=== PATIENT | female | born 1940 | race Caucasian/White ===

== ENCOUNTER → 2017-01-07 | Outpatient (CLI) | payer MEDICARE, MEDICAID ==
--- NOTE | 2017-01-15 08:18 | WOMENS IMAGING REPORT ---
EXAM DESCRIPTION: BILAT SCREENING MAMMO W/CAD COMPLETED DATE/TIME: 01/07/2017 1:57 pm REASON FOR STUDY: ROUTINE SCREENING; Z12.31 Z12.31 ENCNTR SCREEN MAMMOGRAM FOR MALIGNANT NEOPLASM O F ELENO COMPARISON: None. TECHNIQUE: Standard craniocaudal and mediolateral oblique views of each breast recorded using digita l acquisition. LIMITATIONS: None. FINDINGS: Findings present which are benign by mammographic criteria. No suspicious masses, calcifi cations or architectural distortion. Pertinent benign findings: Benign breast parenchymal and vascular calcifications bilaterally. Fibroa denoma far upper outer quadrant right breast. Read with the assistance of CAD. .[facility] - R2 Cenova Version 1.3 .[facility] - R2 Cenova Version 1.3 .[facility] - R2 Cenova Version 2.4 .[facility] - R2 Cenova Version 2.4 .[facility] - R2 Spinning Room Worker Version 9.2 Benign mammographic findings may include one or more of the following: Smooth masses, popcorn/rim/co arse calcifications, asymmetries, post-procedure changes, and lesions with long-standing stability. IMPRESSION: BENIGN MAMMOGRAPHIC FINDINGS. BIRADS 2 BREAST DENSITY: c. The breasts are heterogeneously dense, which may obscure small masses. BIRAD: 2 BENIGN FINDING(S) RECOMMENDATION: ROUTINE SCREENING COMMENT: The patient has been notified of the results by letter per SA requirements. Additional no tification policies are in place for contacting patient with suspicious or incomplete findings. Quality ID #[id number]: The [employer] recommends an annual screening mammogram for women aged 40 years or over. This facility utilizes a reminder system to ensure that all patients receive reminder letters, and/or direct phone calls for appointments. This includes reminders for routine scr eening mammograms, diagnostic mammograms, or other Breast Imaging Interventions when appropriate. Th is patient will be placed in the appropriate reminder system. The [employer] (ACR) has developed recommendations for screening MRI of the breast s in certain patient populations, to be used in conjunction with mammography. Breast MRI surveillanc e may be appropriate for women with more than 20% lifetime risk of developing breast cancer as deter mined by genetic testing, significant family history of the disease, or history of mantle radiation f or Hodgkins Disease. ACR Practice Guidelines 2008. TECHNICAL DOCUMENTATION: FINDING NUMBER: (1) ASSESSMENT: (1) JOB ID: [id number] [employer]- All Rights Reserved
== END ==
LOC: WI 11:33
PROVIDERS: ATTEND Family Medicine
DX: Z12.31 Encounter for screening mammogram for malignant neoplasm of breast (principal)
CPT/HCPCS: 77067; G0202

== ENCOUNTER 2017-07-16 09:22 | Inpatient (IN) | payer MEDICARE, MEDICAID ==
[2017-07-16] MEDS ORDERED: NORMAL SALINE 1000 ML 1,000 ML IV ONE ×2 (09:36→11:27)
--- NOTE | 2017-07-16 09:36 | ER Document Report ---
ED General - General Stated Complaint: ALTERED MENTAL STATUS Time Seen by Provider: 07/16/17 09:25 Notes: Patient is a 77-year-old female who presents emergency department via EMS with a chief complaint of fall, altered mental status. EMS states that the patient' s daughter came over to her house this morning and found her on the ground covered in fecal matter but responsive. She does have a cut on the right frontal part of her scalp without any active bleeding. EMS states that per daughter patient has been more confused over the past week. Otherwise denies any vomiting, cough, urinary frequency. Patient does live by herself with daughter and son-in-law check on her daily. Denies any fevers, vomiting, diarrhea or constipation. 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 PCP is Dr. Darnell TRAVEL OUTSIDE OF THE [place] IN LAST 30 DAYS: No - Related Data Allergies/Adverse Reactions: No Known Allergies Allergy (Unverified 07/16/17 11:04) Past Medical History - Social History Smoking Status: Never Smoker Family History: Reviewed & Not Pertinent Review of Systems - Review of Systems -: Yes ROS unobtainable due to patient's medical condition Physical Exam - Vital signs Vitals: Resp 20 07/16/17 09:45 - Notes Notes: PHYSICAL EXAMINATION: GENERAL: Well-appearing, well-nourished and in no acute distress. GCS 13, confused, responds to voice, follows commands HEAD: 1 cm laceration on the right frontal scalp without active bleeding., normocephalic. EYES: Pupils equal round and nonreactive to light, extraocular movements intact , sclera anicteric, conjunctiva are normal. ENT: Nares patent, oropharynx clear without exudates. Moist mucous membranes. No hemanotympanum . No blood in nares. No dental fracture NECK: Normal range of motion, supple without lymphadenopathy. Trachea midline LUNGS: Breath sounds clear to auscultation bilaterally and equal. No wheezes rales or rhonchi. HEART: Regular rate and rhythm without murmurs. Pulses intact all throughout. ABDOMEN: Soft, minimally distend and minimal tenderness. No guarding, no rebound. No masses appreciated. Bowel sounds normoactive in all 4 quadrants Musculoskeletal: Normal range of motion, no pitting or edema. No cyanosis. Hip non tender, stable. NEUROLOGICAL: Cranial nerves grossly intact. Normal speech, normal gait. Normal sensory, motor, and reflex exams. PSYCH: Normal mood, normal affect. SKIN: Warm, No active bleeding. Start of a stage 2 decubitus ulcer on right buttocks, stage 1 on left buttocks Course - Re-evaluation Re-evalutation: 07/16/17 12:03 Patient is a 77 year old female presents with BP of 100/50, unaware of baseline. Responsive and cooperative. Not oriented to events. CBC elevated at 15.8 with left shift, no indicated source at this time. CT head and neck negative for any evidence of infart, injury or hemorrhage. AAS with normal gas pattern. Chemistry shows elevated BUN/Creatinine with no known history of CKD or baseline function. Lactic normal. UA without evidence of UTI, blood present at CK elevated concerning for rhabdomyolosis. IVF hung with pressures remaining 90's-115. 2nd liter of fluid hanging. Consulted Dr. Waller for admission, to eval in the department 07/16/17 13:44 Patient has been admitted for rhabdomyolysis and associated hypotension under Dr. Waller to telemetry. - Vital Signs Vital signs: Temp Pulse Resp BP Pulse Ox 91 26 H 95/55 L 97 07/16/17 13:39 07/16/17 13:34 07/16/17 13:39 07/16/17 13:32 - Laboratory Result Diagrams: 07/16/17 10:06 07/16/17 10:06 Laboratory results interpreted by me: 07/16/17 07/16/17 07/16/17 10:06 10:06 10:06 WBC 15.1 H Hct 34.9 L RDW 14.7 H Seg Neutrophils % 84.5 H Lymphocytes % 7.2 L Absolute Neutrophils 12.8 H PT 16.6 H BUN 79 H Creatinine 4.11 H Est GFR ( Amer) 13 L Est GFR (Non-Af Amer) 11 L Direct Bilirubin 0.5 H AST 62 H Alkaline Phosphatase 127 H Creatine Kinase Total Protein 6.0 L Albumin 3.4 L Urine Protein Urine Glucose (UA) Urine Blood Urine Urobilinogen 07/16/17 07/16/17 10:06 10:06 WBC Hct RDW Seg Neutrophils % Lymphocytes % Absolute Neutrophils PT BUN Creatinine Est GFR ( Amer) Est GFR (Non-Af Amer) Direct Bilirubin AST Alkaline Phosphatase Creatine Kinase 441 H Total Protein Albumin Urine Protein 100 H Urine Glucose (UA) 50 H Urine Blood MODERATE H Urine Urobilinogen 2.0 H - Diagnostic Test Radiology reviewed: Image reviewed, Reports reviewed - EKG Interpretation by Me EKG shows normal: Sinus rhythm Rate: Normal Rhythm: NSR When compared to previous EKG there are: Previous EKG unavailable Discharge - Discharge Clinical Impression: Orthostatic hypotension Rhabdomyolysis Qualifiers: Rhabdomyolysis type: non-traumatic Qualified Code(s): M62.82 - Rhabdomyolysis Renal failure Qualifiers: Renal failure chronicity: acute Condition: Stable Disposition: ADMITTED INPATIENT Admitting Provider: Hospitalist - [facility] Admitted: Telemetry
[2017-07-16 10:18] LABS: ABSOLUTE LYMPHOCYTES (AUTO) 1.1 10^3/uL (0.5-4.7); ABSOLUTE MONOCYTES (AUTO) 1.2 10^3/uL (0.1-1.4); ABSOLUTE NEUT (AUTO) 12.8 10^3/uL (1.7-8.2); BASOPHILS % (AUTO) 0.3 % (0-2); HEMATOCRIT 34.9 % (36.0-47.0); HGB HCT DIFFERENCE 1.1; LYMPHOCYTES % (AUTO) 7.2 % (13-45); MEAN CORPUSCULAR HGB CONC 34.5 g/dL (32.0-36.0); MEAN CORPUSCULAR VOLUME 84 fl (80-97); RED BLOOD COUNT 4.14 10^6/uL (3.72-5.28); RED CELL DISTRIBUTION WIDTH 14.7 % (11.5-14.0); SEGMENTED NEUTROPHILS % (AUTO) 84.5 % (42-78); WHITE BLOOD COUNT 15.1 10^3/uL (4.0-10.5)
[2017-07-16 10:34] LABS: ALANINE AMINOTRANSFERASE 36 U/L (9-52); ALBUMIN 3.4 g/dL (3.5-5.0); ALKALINE PHOSPHATASE 127 U/L (38-126); ANION GAP 18 (5-19); ASPARTATE AMINO TRANSFERASE 62 U/L (14-36); BILIRUBIN,DIRECT 0.5 mg/dL (0.0-0.4); BILIRUBIN,TOTAL 0.8 mg/dL (0.2-1.3); BLOOD UREA NITROGEN 79 mg/dL (7-20); CALCIUM 9.9 mg/dL (8.4-10.2); CARBON DIOXIDE 22 mmol/L (22-30); CHLORIDE 99 mmol/L (98-107); CREATININE RESULT 4.11 mg/dL (0.52-1.25); GLUCOSE 104 mg/dL (75-110); MAGNESIUM 2.2 mg/dL (1.6-2.3); PROTHROMBIN TIME 16.6 SEC (11.4-15.4); SODIUM 138.5 mmol/L (137-145)
--- NOTE | 2017-07-16 10:35 | RADIOLOGY REPORT (SQ) ---
EXAM DESCRIPTION: CT HEAD WITHOUT COMPLETED DATE/TIME: 07/16/2017 10:25 am REASON FOR STUDY: fall COMPARISON: None. TECHNIQUE: Axial images acquired through the brain without intravenous contrast. Images reviewed wi th bone, brain and subdural windows. Images stored on PACS. All CT scanners at this facility use dose modulation, iterative reconstruction, and/or weight based d osing when appropriate to reduce radiation dose to as low as reasonably achievable (ALARA). [facility]: Dose Right [facility]: CareDose [facility]: Dose Right [facility]: Teradose 4D [facility]: Smart Cvgram.me RADIATION DOSE: CT Rad equipment meets quality standard of care and radiation dose reduction techniq ues were employed. CTDIvol: 28.0 mGy. DLP: 1054 mGy-cm. mGy. LIMITATIONS: Motion artifact throughout the study, patient was scanned twice FINDINGS: Motion artifact throughout the study, patient was scanned twice. On the images without motion artifact, no gross acute intracranial hemorrhage, mass effect, or midlin e shift. No gross acute large territory ischemia. Mild prominence of the ventricles and sulci with chronic bifrontal and biparietal white matter disease. IMPRESSION: Very limited study. No acute changes EVIDENCE OF ACUTE STROKE: NO. COMMENT: Quality ID # [id number]: Final reports with documentation of one or more dose reduction techniques (e.g., Automated exposure control, adjustment of the mA and/or kV according to patient size, use of iterative reconstruction technique) TECHNICAL DOCUMENTATION: JOB ID: [id number] [employer]- All Rights Reserved
--- NOTE | 2017-07-16 10:37 | RADIOLOGY REPORT (SQ) ---
EXAM DESCRIPTION: CT CERVICAL SPINE WITHOUT COMPLETED DATE/TIME: 07/16/2017 10:25 am REASON FOR STUDY: fall COMPARISON: None. TECHNIQUE: Axial images acquired through the cervical spine without intravenous contrast. Images re viewed with lung, soft tissue and bone windows. Reconstructed coronal and sagittal MPR images review ed. Images stored on PACS. All CT scanners at this facility use dose modulation, iterative reconstruction, and/or weight based d osing when appropriate to reduce radiation dose to as low as reasonably achievable (ALARA). [facility]: Dose Right [facility]: CareDose [facility]: Dose Right [facility]: Teradose 4D [facility]: Smart Mythos RADIATION DOSE: CT Rad equipment meets quality standard of care and radiation dose reduction techniq ues were employed. CTDIvol: 11.8 mGy. DLP: 231 mGy-cm. mGy. LIMITATIONS: None. FINDINGS: ALIGNMENT: Anatomic. MINERALIZATION: Normal. VERTEBRAL BODIES: No fractures or dislocation. DISCS: No significant disc disease. FACETS, LATERAL MASSES, POSTERIOR ELEMENTS: No fractures. No dislocation. No acute findings. HARDWARE: None in the spine. VISUALIZED RIBS: No fractures. LUNG APICES AND SOFT TISSUES: No significant or acute findings. OTHER: No other significant finding. IMPRESSION: NO ACUTE OR SIGNIFICANT FINDINGS IN THE CERVICAL SPINE. TECHNICAL DOCUMENTATION: JOB ID: [id number] Quality ID # [id number]: Final reports with documentation of one or more dose reduction techniques (e.g., Au tomated exposure control, adjustment of the mA and/or kV according to patient size, use of iterative reconstruction technique) 2010 [employer]- All Rights Reserved
--- NOTE | 2017-07-16 10:45 | RADIOLOGY REPORT (SQ) ---
EXAM DESCRIPTION: ACUTE ABDOMEN SERIES COMPLETED DATE/TIME: 07/16/2017 10:36 am REASON FOR STUDY: tenderness COMPARISON: None. NUMBER OF VIEWS: Three views. TECHNIQUE: Frontal chest, supine abdomen and UPRIGHT abdomen radiographic images acquired. LIMITATIONS: None. FINDINGS: CHEST: No acute infiltrates. Moderate cardiomegaly. No pleural effusion or pneumothorax. No hilar enlargement. Bones osteopenic. FREE AIR: None. No abnormal gas collections. BOWEL GAS PATTERN: Nonobstructive pattern. No dilated loops or air fluid levels. CALCIFICATIONS: No suspicious calcifications. Diffuse atherosclerotic iliac artery calcification HARDWARE: Ventral hernia repair with laparoscopic tacks. Surgical clips in the mid abdomen. SOFT TISSUES: No gross mass or suggestion of organomegaly. BONES: No acute fracture. No worrisome bone lesions. OTHER: No other significant finding. IMPRESSION: Nonspecific bowel gas pattern. No acute infiltrates. TECHNICAL DOCUMENTATION: JOB ID: [id number] [employer]- All Rights Reserved
[2017-07-16 10:51] LABS: FREE T3 4.09 pg/mL (2.77-5.27)
[2017-07-16 11:12] LABS: AMORPHOUS SEDIMENT,URINE TRACE /HPF; APPEARANCE,URINE CLOUDY; BILIRUBIN,URINE NEGATIVE (NEGATIVE); GLUCOSE, URINE 50 mg/dL (NEGATIVE); KETONES,URINE NEGATIVE (NEGATIVE); LEUKOCYTE ESTERASE,URINE NEGATIVE (NEGATIVE); NITRITE,URINE NEGATIVE (NEGATIVE); PROTEIN,URINE 100 mg/dL (NEGATIVE)
[2017-07-16] MEDS ORDERED: NORMAL SALINE 1000 ML 1,000 ML IV PRN ×2 (12:16→13:01)
[2017-07-16] MEDS ORDERED: ONDANSETRON HCL INJ/PF 4 MG/2 ML SDV IV PRN (13:01)
[2017-07-16] MEDS ORDERED: ACETAMINOPHEN 325 MG TABLET PO PRN (13:01)
--- NOTE | 2017-07-16 13:03 | RADIOLOGY REPORT (SQ) ---
EXAM DESCRIPTION: HIP RIGHT AP/LATERAL COMPLETED DATE/TIME: 07/16/2017 12:39 pm REASON FOR STUDY: right leg pain, no deformity, swelling, full ROM COMPARISON: None. NUMBER OF VIEWS: Two views. TECHNIQUE: AP pelvis and additional frog-leg view of the right hip. LIMITATIONS: None. FINDINGS: MINERALIZATION: Normal. RIGHT HIP: No fracture or dislocation. No worrisome bone lesions. LEFT HIP: No fracture or dislocation. No worrisome bone lesions. PUBIS AND ISCHIUM: No fracture. PELVIS: No fracture. SACRUM: No fracture or dislocation. No worrisome bone lesions. LOWER LUMBAR SPINE: Lower lumbar degenerative changes are present. SOFT TISSUES: No findings. OTHER: No other significant finding. IMPRESSION: Normal right hip. Lower lumbar degenerative changes are present. TECHNICAL DOCUMENTATION: JOB ID: [id number] [employer]- All Rights Reserved
--- NOTE | 2017-07-16 13:09 | EKG REPORT ---
SEVERITY:- NORMAL ECG - SINUS RHYTHM : Confirmed by: Devon Rodriguez MD 16-Jul-2017 13:07:53
--- NOTE | 2017-07-16 13:36 | PDOC H&P ---
History of Present Illness Admission Date/PCP: 07/16/2017 Patient complains of: Found down History of Present Illness: DOMENIC MARTELL is a 77 year old female presents to the ER after daughter found pt down at home in bathroom. Pt states that she has felt week for about 1 week. Pt states that she has noted that she has been sleeping a lot at home. Pt states that she was walking to the bathroom when she fell down. Pt state that she does not remember anything after that. ER STRUCTURAL IRONWORKER reports that pt was found covered in stool. Pt states that she has not been drinking very much. Pt states that she is on Lisinopril at home. Pt denies chest pain, shortness of breath, or fever. Pt denies any new medications or changes in medications. Pt states that her mouth is very dry. ER STRUCTURAL IRONWORKER states that pt was noted to be hypotensive on arrival. Past Medical History Cardiac Medical History: Reports: Hypertension Neurological History Note: Poor Vision Past Surgical History Past Surgical History: Reports: Other - Eye surgery Social History Information Source: Patient Lives with: Alone Smoking Status: Never Smoker Frequency of Alcohol Use: None Hx Recreational Drug Use: No Drugs: None Family History Parental Family History Reviewed: Yes Children Family History Reviewed: Yes Sibling(s) Family History Reviewed.: Yes Medication/Allergy Allergies/Adverse Reactions: No Known Allergies Allergy (Unverified 07/16/17 11:04) Review of Systems Constitutional: PRESENT: fatigue, weakness. ABSENT: chills, fever(s), headache( s), weight gain, weight loss Eyes: PRESENT: visual disturbances - Chronic Ears: ABSENT: hearing changes Nose, Mouth, and Throat: PRESENT: other - Dry mouth Cardiovascular: ABSENT: chest pain, dyspnea on exertion, edema, orthropnea, palpitations Gastrointestinal: ABSENT: abdominal pain, constipation, diarrhea, hematemesis, hematochezia, nausea, vomiting Genitourinary: ABSENT: dysuria, hematuria Musculoskeletal: ABSENT: joint swelling Integumentary: ABSENT: rash, wounds Neurological: PRESENT: frequent falls, weakness. ABSENT: abnormal gait, abnormal speech, confusion, dizziness, focal weakness, syncope Psychiatric: ABSENT: anxiety, depression, homidical ideation, suicidal ideation Endocrine: ABSENT: cold intolerance, heat intolerance, polydipsia, polyuria Hematologic/Lymphatic: ABSENT: easy bleeding, easy bruising Physical Exam Vital Signs: Temp Pulse Resp BP Pulse Ox 21 H 113/83 100 07/16/17 11:31 07/16/17 11:31 07/16/17 11:31 General appearance: PRESENT: no acute distress, thin Head exam: PRESENT: normocephalic, other - Right side fore head abrasion with brusing erythematous Neck exam: ABSENT: carotid bruit, JVD, lymphadenopathy, thyromegaly Respiratory exam: PRESENT: clear to auscultation cem. ABSENT: rales, rhonchi, wheezes Cardiovascular exam: PRESENT: RRR. ABSENT: diastolic murmur, rubs, systolic murmur Pulses: PRESENT: normal dorsalis pedis pul Vascular exam: PRESENT: normal capillary refill GI/Abdominal exam: PRESENT: normal bowel sounds, soft. ABSENT: distended, guarding, mass, organolmegaly, rebound, tenderness Rectal exam: PRESENT: deferred Extremities exam: PRESENT: full ROM. ABSENT: calf tenderness, clubbing, pedal edema Neurological exam: PRESENT: alert, awake, oriented to person, oriented to place , oriented to time, oriented to situation. ABSENT: motor sensory deficit Psychiatric exam: PRESENT: flat affect, normal mood. ABSENT: homicidal ideation , suicidal ideation Skin exam: PRESENT: other - Right side of forehead abrasion with erythema Results Laboratory Results: 07/16/17 10:06 07/16/17 10:06 07/16/17 07/16/17 07/16/17 10:06 10:06 10:06 WBC 15.1 H RBC 4.14 Hgb 12.0 Hct 34.9 L MCV 84 MCH 29.0 MCHC 34.5 RDW 14.7 H Plt Count 259 Seg Neutrophils % 84.5 H Lymphocytes % 7.2 L Monocytes % 8.0 Eosinophils % 0.0 Basophils % 0.3 Absolute Neutrophils 12.8 H Absolute Lymphocytes 1.1 Absolute Monocytes 1.2 Absolute Eosinophils 0.0 Absolute Basophils 0.0 Sodium 138.5 Potassium 5.0 Chloride 99 Carbon Dioxide 22 Anion Gap 18 BUN 79 H Creatinine 4.11 H Est GFR ( Amer) 13 L Est GFR (Non-Af Amer) 11 L Glucose 104 Lactic Acid 1.1 Calcium 9.9 Magnesium 2.2 Total Bilirubin 0.8 AST 62 H ALT 36 Alkaline Phosphatase 127 H Total Protein 6.0 L Albumin 3.4 L Free T4 Free T3 pg/mL Urine Color Urine Appearance Urine pH Ur Specific [place] Urine Protein Urine Glucose (UA) Urine Ketones Urine Blood Urine Nitrite Ur Leukocyte Esterase Urine WBC (Auto) Urine RBC (Auto) 07/16/17 07/16/17 10:06 10:06 WBC RBC Hgb Hct MCV MCH MCHC RDW Plt Count Seg Neutrophils % Lymphocytes % Monocytes % Eosinophils % Basophils % Absolute Neutrophils Absolute Lymphocytes Absolute Monocytes Absolute Eosinophils Absolute Basophils Sodium Potassium Chloride Carbon Dioxide Anion Gap BUN Creatinine Est GFR ( Amer) Est GFR (Non-Af Amer) Glucose Lactic Acid Calcium Magnesium Total Bilirubin AST ALT Alkaline Phosphatase Total Protein Albumin Free T4 2.01 Free T3 pg/mL 4.09 Urine Color DARK YELLOW Urine Appearance CLOUDY Urine pH 5.0 Ur Specific [place] 1.020 Urine Protein 100 H Urine Glucose (UA) 50 H Urine Ketones NEGATIVE Urine Blood MODERATE H Urine Nitrite NEGATIVE Ur Leukocyte Esterase NEGATIVE Urine WBC (Auto) 2 Urine RBC (Auto) 3 07/16/17 10:06 Creatine Kinase 441 H Impressions: Cervical Spine CT 07/16/17 09:34 IMPRESSION: NO ACUTE OR SIGNIFICANT FINDINGS IN THE CERVICAL SPINE. Acute Abdomen Series 07/16/17 09:35 IMPRESSION: Nonspecific bowel gas pattern. No acute infiltrates. Head CT 07/16/17 09:35 IMPRESSION: Very limited study. No acute changes EVIDENCE OF ACUTE STROKE: NO. Hip/Pelvis X-Ray 07/16/17 12:15 IMPRESSION: Normal right hip. Lower lumbar degenerative changes are present. Assessment & Plan - Diagnosis (1) Orthostatic hypotension Is this a current diagnosis for this admission?: Yes Plan: Will continue IVFs. Will give Normal saline bolus. (2) Syncope Is this a current diagnosis for this admission?: Yes Plan: Secondary to Orthostatic Hypotension: Will continue IVFs. Will discontinue Lisinopril. Will check Echo and U/S of Kidneys. (3) Rhabdomyolysis Is this a current diagnosis for this admission?: Yes Plan: Will continue IVFs. Will check CK in am (4) Renal failure Qualifiers: Renal failure chronicity: acute Is this a current diagnosis for this admission?: Yes Plan: Will give IVFs. Will check BMP in am. Pt's baseline renal function unknown. (5) Moderate protein-calorie malnutrition Is this a current diagnosis for this admission?: Yes Plan: Will write for nephro TID. (6) Debility Is this a current diagnosis for this admission?: Yes Plan: Will have pt work with PT/OT. (7) Environmental safety problem Is this a current diagnosis for this admission?: Yes Plan: Pt lives alone and has vision issues. Will have case management involved in case. - Time Time Spent: 30 to 50 Minutes Anticipated discharge: Home
[2017-07-16 15:13] LABS: ABSOLUTE NEUT (AUTO) 11.8 10^3/uL (1.7-8.2); BASOPHILS % (AUTO) 0.3 % (0-2); EOSINOPHILS % (AUTO) 0.1 % (0-6); HEMATOCRIT 32.4 % (36.0-47.0); HEMOGLOBIN 10.9 g/dL (12.0-15.5); HGB HCT DIFFERENCE 0.3; LYMPHOCYTES % (AUTO) 6.9 % (13-45); MEAN CORPUSCULAR HEMOGLOBIN 28.9 pg (27.0-33.4); MEAN CORPUSCULAR HGB CONC 33.7 g/dL (32.0-36.0); MEAN CORPUSCULAR VOLUME 86 fl (80-97); MONOCYTES % (AUTO) 7.3 % (3-13); RED BLOOD COUNT 3.78 10^6/uL (3.72-5.28); RED CELL DISTRIBUTION WIDTH 15.1 % (11.5-14.0); SEGMENTED NEUTROPHILS % (AUTO) 85.4 % (42-78); WHITE BLOOD COUNT 13.8 10^3/uL (4.0-10.5)
--- NOTE | 2017-07-16 15:17 | RADIOLOGY REPORT (SQ) ---
EXAM DESCRIPTION: U/S RETROPERITON (RENAL/AORTA) COMPLETED DATE/TIME: 07/16/2017 3:06 pm REASON FOR STUDY: Acute Renal Failure. COMPARISON: None. TECHNIQUE: Dynamic and static grayscale images acquired of the kidneys and bladder and recorded on P ACS. Additional selected color Doppler and spectral images recorded. LIMITATIONS: None. FINDINGS: RIGHT KIDNEY: Normal size, 11.4 cm. Normal echogenicity. No solid or suspicious masses. M ild dilatation of the renal pelvis. No true hydronephrosis. No calcifications. LEFT KIDNEY: Left kidney not identified. This complex heterogeneous mass extending from the midline toward the left that measures 12.5 x 12.2 by 9.3 cm. BLADDER: The bladder is catheterized. OTHER FINDINGS: No other significant finding. IMPRESSION: There is a large mass extending from midline to the left. This could represent a renal neoplasm. Recommend CT without with contrast. TECHNICAL DOCUMENTATION: JOB ID: [id number] [employer]- All Rights Reserved
--- NOTE | 2017-07-16 15:19 | RADIOLOGY REPORT (SQ) ---
EXAM DESCRIPTION: CAROTID DOPPLER COMPLETED DATE/TIME: 07/16/2017 3:01 pm REASON FOR STUDY: syncope COMPARISON: None. TECHNIQUE: Grayscale ultrasound, Doppler velocity and spectra, and color Doppler images acquired of the extra-cranial carotid and vertebral arteries. Images stored on PACS. LIMITATIONS: None. FINDINGS: RIGHT CAROTID CCA Velocities: Within normal limits. ICA Velocities Peak systolic 66cm/s. End diastolic 19cm/s. Proximal ICA/CCA peak systolic ratio 0.7. Spectra normal. No significant plaque. LEFT CAROTID CCA Velocities: Within normal limits. ICA Velocities Peak systolic 121cm/s. End diastolic 42cm/s. Proximal ICA/CCA peak systolic ratio 1.4. Spectra normal. No significant plaque. VERTEBRAL ARTERIES: Antegrade flow. Normal waveforms. SUBCLAVIAN ARTERIES: No finding. OTHER: No other significant finding. IMPRESSION: NO HEMODYNAMICALLY SIGNIFICANT STENOSIS. COMMENT: Quality ID #[id number]: Velocity criteria are extrapolated from the diameter data as defined by t he Society of Radiologists in Ultrasound Consensus Conference. Radiology 2003: 229; 340-346. TECHNICAL DOCUMENTATION: JOB ID: [id number] [employer]- All Rights Reserved
[2017-07-16 15:33] LABS: ALANINE AMINOTRANSFERASE 38 U/L (9-52); ALBUMIN 2.7 g/dL (3.5-5.0); ALKALINE PHOSPHATASE 104 U/L (38-126); ANION GAP 15 (5-19); ASPARTATE AMINO TRANSFERASE 51 U/L (14-36); BILIRUBIN,DIRECT 0.3 mg/dL (0.0-0.4); BILIRUBIN,TOTAL 0.6 mg/dL (0.2-1.3); BLOOD UREA NITROGEN 74 mg/dL (7-20); CALCIUM 8.7 mg/dL (8.4-10.2); CARBON DIOXIDE 19 mmol/L (22-30); CHLORIDE 105 mmol/L (98-107); CREATININE RESULT 3.58 mg/dL (0.52-1.25); GLUCOSE 88 mg/dL (75-110); POTASSIUM 4.8 mmol/L (3.6-5.0); SODIUM 138.8 mmol/L (137-145); TOTAL PROTEIN 5.1 g/dL (6.3-8.2)
--- NOTE | 2017-07-16 18:51 | RADIOLOGY REPORT (SQ) ---
EXAM DESCRIPTION: CT ABD/PELVIS NO ORAL OR IV COMPLETED DATE/TIME: 07/16/2017 6:33 pm REASON FOR STUDY: renal mass COMPARISON: Ultrasound 07/16/2017 TECHNIQUE: CT scan of the abdomen and pelvis performed without intravenous or oral contrast. Images reviewed with lung, soft tissue, and bone windows. Reconstructed coronal and sagittal MPR images revi ewed. All images stored on PACS. All CT scanners at this facility use dose modulation, iterative reconstruction, and/or weight based d osing when appropriate to reduce radiation dose to as low as reasonably achievable (ALARA). [facility]: Dose Right [facility]: CareDose [facility]: Dose Right [facility]: Teradose 4D [facility]: Smart SergeMD RADIATION DOSE: CT Rad equipment meets quality standard of care and radiation dose reduction techniq ues were employed. CTDIvol: 12.5 mGy. DLP: 446 mGy-cm.mGy. LIMITATIONS: None. FINDINGS: LOWER CHEST: Moderate left pleural effusion. Subsegmental atelectasis versus left lower l obe infiltrate. NON-CONTRASTED LIVER, SPLEEN, ADRENALS: Evaluation limited by lack of IV contrast. No identified sign ificant masses. PANCREAS: No masses. No peripancreatic inflammatory changes. GALLBLADDER: No identified stones by CT criteria. No inflammatory changes to suggest cholecystitis. RIGHT KIDNEY AND URETER: No suspicious masses. Assessment limited by lack of IV contrast. No signif icant calcifications. No hydronephrosis or hydroureter. LEFT KIDNEY AND URETER: The left kidney is displaced cephalad by a large mass that extends from the m idline to the left. There is significant hydronephrosis. AORTA AND RETROPERITONEUM: No aneurysm. There is 11.6 cm mass that displaces the aorta to the right and is somewhat heterogeneous. This mass is relatively low in density with Hounsfield measurements o n the mid teens to low 20s. 2 additional masses are seen on the left measuring about 5 cm. BOWEL AND PERITONEAL CAVITY: Masses as described above. Etiology uncertain. APPENDIX: Not identified. BONES: No acute or significant abnormality OTHER: No other significant finding. IMPRESSION: 1. Cannot exclude limited left lower lobe pneumonia. There is a moderate left pleural effusion. 2. There is a large mass in the mid abdomen extending from the midline to the left. There are 2 sma ller masses as described. Etiology uncertain. Hematoma should be in the differential. Josie masses cannot be excluded. Consider surgical consultation. COMMENT: Quality ID # [id number]: Final reports with documentation of one or more dose reduction techniques (e.g., Automated exposure control, adjustment of the mA and/or kV according to patient size, use of iterative reconstruction technique) TECHNICAL DOCUMENTATION: JOB ID: [id number] [employer]- All Rights Reserved
[2017-07-16] MEDS ORDERED: INFLUENZA ADLT QUAD (36MOS+) 2017-18 VAC 0.5 ML SYR IM PRN (20:45)
[2017-07-17] MEDS ORDERED: NORMAL SALINE 1000 ML 1,000 ML IV ONE ×2 (01:00→06:49)
[2017-07-17 01:10] LABS: ABSOLUTE LYMPHOCYTES (AUTO) 0.8 10^3/uL (0.5-4.7); ABSOLUTE MONOCYTES (AUTO) 0.9 10^3/uL (0.1-1.4); ABSOLUTE NEUT (AUTO) 8.6 10^3/uL (1.7-8.2); BASOPHILS % (AUTO) 0.2 % (0-2); EOSINOPHILS % (AUTO) 0.1 % (0-6); HEMATOCRIT 29.5 % (36.0-47.0); HEMOGLOBIN 10.2 g/dL (12.0-15.5); HGB HCT DIFFERENCE 1.1; LYMPHOCYTES % (AUTO) 7.7 % (13-45); MEAN CORPUSCULAR HEMOGLOBIN 29.2 pg (27.0-33.4); MEAN CORPUSCULAR HGB CONC 34.6 g/dL (32.0-36.0); MEAN CORPUSCULAR VOLUME 85 fl (80-97); MONOCYTES % (AUTO) 8.9 % (3-13); RED BLOOD COUNT 3.49 10^6/uL (3.72-5.28); SEGMENTED NEUTROPHILS % (AUTO) 83.1 % (42-78); WHITE BLOOD COUNT 10.3 10^3/uL (4.0-10.5)
[2017-07-17] MEDS: NORMAL SALINE 1000 ML 1,000 ML IV PRN ×2 (01:18→04:16)
--- NOTE | 2017-07-17 01:19 | PDOC CONSULTATION ---
Consultation Consult Date: 07/17/17 Consult reason:: Large abdominal mass r/o hematoma History of Present Illness Admission Date/PCP: 07/16/17 14:16 Patient complains of: LLQ pains and right upper tigh pains History of Present Illness: Pt found by her daughter at home on the Bathroom floorface down.Patient apparently fellon the bathroom. Allegedly has been feeling week for the past several days. Brought to ER today and noted to be hypotensive. CT scan of abdomen showed a 12x9 cm mass umbilicus to pelvis Past Medical History Cardiac Medical History: Reports: Hypertension Past Surgical History Past Surgical History: Reports: Other - Eye surgery Social History Lives with: Alone Smoking Status: Never Smoker Frequency of Alcohol Use: None Hx Recreational Drug Use: No Drugs: None - Advance Directive Resuscitation Status: Full Code Family History Family History: Reviewed & Not Pertinent Parental Family History Reviewed: No Children Family History Reviewed: No Sibling(s) Family History Reviewed.: No Medication/Allergy Home Medications: Cetirizine HCl [Zyrtec 10 mg Tablet] 20 mg PO DAILY 07/16/17 Fluticasone Propionate [Flonase Nasal [place] 50 Mcg/[place] 16 gm] 1 spray NASL DAILY 07/16/17 Levothyroxine Sodium [Synthroid 0.025 mg Tablet] 0.025 mg PO Q6AM 07/16/17 Lisinopril [Prinivil 2.5 mg Tablet] 2.5 mg PO Q12 07/16/17 Multivitamin [Tab-A-Jonelle (Multiple Vitamin) Tablet] 1 tab PO DAILY 07/16/17 Vitamin E (Dl, Acetate) [Vitamin E 400 Unit Capsule] 400 unit PO DAILY 07/16/17 Allergies/Adverse Reactions: No Known Allergies Allergy (Unverified 07/16/17 11:04) Review of Systems Review of Systems: Pt not a very good historian though she knows she is in a hospital but unable to tell me her date of .Some of the history obtained through the records. Constitutional: PRESENT: headache(s) Eyes: PRESENT: other - decreased Ears: PRESENT: other - decreased hearing Nose, Mouth, and Throat: PRESENT: headache(s) Cardiovascular: PRESENT: other - no chest pains Respiratory: PRESENT: cough Gastrointestinal: PRESENT: abdominal pain Genitourinary: PRESENT: other - has romeo Musculoskeletal: PRESENT: muscle weakness Integumentary: PRESENT: other - right forehead with reddish discoloration where apparently ijured it with the fall Lower leg skin very dry Psychiatric: PRESENT: other - no hallucinations Endocrine: PRESENT: other - no polydipsia Hematologic/Lymphatic: PRESENT: other - no easy bruisability Physical Exam Vital Signs: Temp Pulse Resp BP Pulse Ox 98.4 F 94 18 83/44 L 95 07/16/17 19:30 07/16/17 19:30 07/16/17 19:30 07/16/17 19:30 07/16/17 19:30 Intake & Output 07/15/17 07/16/17 07/17/17 06:59 06:59 06:59 Intake Total 75 Balance 75 Weight 61.3 kg General appearance: PRESENT: mild distress Head exam: PRESENT: other - contusion to right forehead with reddish discoloration and rash Mouth exam: PRESENT: tongue midline GI/Abdominal exam: PRESENT: soft, tenderness - LLQ and supra pubic tenderness pubic Rectal exam: PRESENT: deferred Neurological exam: PRESENT: awake, oriented to place Psychiatric exam: PRESENT: appropriate affect Skin exam: PRESENT: erythema, rash, other - to right forehead,Claims she bumped this part of head when she fell. Results Laboratory Results: 07/16/17 15:04 07/16/17 15:04 07/16/17 07/16/17 15:04 15:04 WBC 13.8 H RBC 3.78 Hgb 10.9 L Hct 32.4 L MCV 86 MCH 28.9 MCHC 33.7 RDW 15.1 H Plt Count 224 Seg Neutrophils % 85.4 H Lymphocytes % 6.9 L Monocytes % 7.3 Eosinophils % 0.1 Basophils % 0.3 Absolute Neutrophils 11.8 H Absolute Lymphocytes 1.0 Absolute Monocytes 1.0 Absolute Eosinophils 0.0 Absolute Basophils 0.0 Sodium 138.8 Potassium 4.8 Chloride 105 Carbon Dioxide 19 L Anion Gap 15 BUN 74 H Creatinine 3.58 H Est GFR ( Amer) 15 L Est GFR (Non-Af Amer) 12 L Glucose 88 Calcium 8.7 Total Bilirubin 0.6 AST 51 H ALT 38 Alkaline Phosphatase 104 Total Protein 5.1 L Albumin 2.7 L Impressions: Abdomen/Pelvis CT 07/16/17 00:00 IMPRESSION: 1. Cannot exclude limited left lower lobe pneumonia. There is a moderate left pleural effusion. 2. There is a large mass in the mid abdomen extending from the midline to the left. There are 2 smaller masses as described. Etiology uncertain. Hematoma should be in the differential. Josie masses cannot be excluded. Consider surgical consultation. Carotid Doppler Study 07/16/17 00:00 IMPRESSION: NO HEMODYNAMICALLY SIGNIFICANT STENOSIS. Renal Ultrasound 07/16/17 00:00 IMPRESSION: There is a large mass extending from midline to the left. This could represent a renal neoplasm. Recommend CT without with contrast. Cervical Spine CT 07/16/17 09:34 IMPRESSION: NO ACUTE OR SIGNIFICANT FINDINGS IN THE CERVICAL SPINE. Acute Abdomen Series 07/16/17 09:35 IMPRESSION: Nonspecific bowel gas pattern. No acute infiltrates. Head CT 07/16/17 09:35 IMPRESSION: Very limited study. No acute changes EVIDENCE OF ACUTE STROKE: NO. Hip/Pelvis X-Ray 07/16/17 12:15 IMPRESSION: Normal right hip. Lower lumbar degenerative changes are present. Assessment & Plan - Diagnosis (1) Intra abdominal hemorrhage Is this a current diagnosis for this admission?: Yes Plan: monitor VS and HH - Time Time Spent: 30 to 50 Minutes - Inpatient Certification Medical Necessity: Need Close Monitoring Due to Risk of Patient Decompensation, Need For IV Fluids, Need For Continuous Telemetry Monitoring, Need for Neurological Checks, Risk of Complication if Not Cared For in Hospital, Risk of Diagnosis Which Will Require Inpatient Eval/Care/Monitoring - Plan Summary Plan Summary: Appears to have a large intra-abdominal mass suspicious for hematoma. I did not see any external trauma on abdominal wall. D/W Dr Mckinney/hospitalist and agree with hi this may be a tumor that bled with relatively minor injury. Pt is still tachy cardic with history of hypotension in the ED. This could be a manifestation of the abdominal mass/hematoma though patient apparently dehydrated with elevated BUN/Creat. Agree with hydration and monitoring of H/H. May need to be in a tertiary hospital for more diagnostic/treatment options.
[2017-07-17] MEDS ORDERED: DILTIAZEM HCL INJ 25 MG/5 ML VIAL IV ONE (01:46)
[2017-07-17] MEDS ORDERED: DILTIAZEM HCL/D5W 125 MG/125 ML RTUINJ IV PRN (02:14)
[2017-07-17] MEDS ORDERED: DEXTROSE 5%-WATER 250 ML with PHENYLEPHRINE HCL 40 MG IV PRN ×2 (04:30)
[2017-07-17] MEDS ORDERED: PHENYLEPHRINE HCL INJ/PF 10 MG/1 ML SDV IV PRN (04:37)
[2017-07-17] MEDS ORDERED: HYDROCORTISONE SOD SUCCINATE INJ/PF 100 MG/2 ML SDV IV ONE (04:45)
[2017-07-17 05:30] LABS: ABSOLUTE LYMPHOCYTES (AUTO) 1.1 10^3/uL (0.5-4.7); ABSOLUTE NEUT (AUTO) 11.1 10^3/uL (1.7-8.2); BASOPHILS % (AUTO) 0.2 % (0-2); EOSINOPHILS % (AUTO) 0.2 % (0-6); HEMATOCRIT 31.5 % (36.0-47.0); HEMOGLOBIN 10.4 g/dL (12.0-15.5); HGB HCT DIFFERENCE -0.3; LYMPHOCYTES % (AUTO) 8.2 % (13-45); MEAN CORPUSCULAR HEMOGLOBIN 28.3 pg (27.0-33.4); MEAN CORPUSCULAR VOLUME 86 fl (80-97); MONOCYTES % (AUTO) 7.6 % (3-13); RED BLOOD COUNT 3.68 10^6/uL (3.72-5.28); RED CELL DISTRIBUTION WIDTH 15.2 % (11.5-14.0); SEGMENTED NEUTROPHILS % (AUTO) 83.8 % (42-78); WHITE BLOOD COUNT 13.2 10^3/uL (4.0-10.5)
[2017-07-17 05:49] LABS: ALANINE AMINOTRANSFERASE 40 U/L (9-52); ALBUMIN 2.6 g/dL (3.5-5.0); ALKALINE PHOSPHATASE 103 U/L (38-126); ANION GAP 15 (5-19); ASPARTATE AMINO TRANSFERASE 50 U/L (14-36); BILIRUBIN,DIRECT 0.4 mg/dL (0.0-0.4); BILIRUBIN,TOTAL 0.5 mg/dL (0.2-1.3); BLOOD UREA NITROGEN 71 mg/dL (7-20); CALCIUM 8.4 mg/dL (8.4-10.2); CARBON DIOXIDE 17 mmol/L (22-30); CHLORIDE 110 mmol/L (98-107); CHOLESTEROL 111.44 mg/dL (0-200); CREATINE KINASE 347 U/L (30-135); CREATININE RESULT 2.87 mg/dL (0.52-1.25); Direct HDL 19 mg/dL (>40); GLUCOSE 78 mg/dL (75-110); POTASSIUM 4.1 mmol/L (3.6-5.0); SODIUM 142.2 mmol/L (137-145); TOTAL PROTEIN 5.1 g/dL (6.3-8.2); TRIGLYCERIDES 76 mg/dL (<150)
[2017-07-17 05:58] LABS: CREATINE KINASE MB 4.98 ng/mL (<4.55); TROPONIN I 0.083 ng/mL
[2017-07-17 06:00] LABS: DIRECT LDL 62 mg/dL (<100)
[2017-07-17] MEDS ORDERED: LANSOPRAZOLE 30 MG TAB.RAP.DR PO SCH (06:00)
[2017-07-17 06:18] LABS: THYROID STIMULATING HORMONE 0.02 uIU/mL (0.47-4.68)
--- NOTE | 2017-07-17 07:49 | EKG REPORT ---
SEVERITY:- ABNORMAL ECG - ATRIAL FIBRILLATION, V-RATE 85-115 : Confirmed by: Devon Rodriguez MD 17-Jul-2017 07:49:21
--- NOTE | 2017-07-17 08:42 | RADIOLOGY REPORT (SQ) ---
EXAM DESCRIPTION: HIP LEFT AP/LATERAL COMPLETED DATE/TIME: 07/17/2017 6:41 am REASON FOR STUDY: fall c ext rotation COMPARISON: Renal ultrasound 07/16/2017 CT abdomen without contrast 07/16/2017 Right hip films 07/16/2017 NUMBER OF VIEWS: Two views. TECHNIQUE: AP pelvis and additional frog-leg view of the left hip. LIMITATIONS: None. FINDINGS: MINERALIZATION: Osteopenic LEFT HIP: No fracture or dislocation. No worrisome bone lesions. RIGHT HIP: No fracture or dislocation. No worrisome bone lesions. PUBIS AND ISCHIUM: No fracture. PELVIS: No fracture. SACRUM: No fracture or dislocation. No worrisome bone lesions. LOWER LUMBAR SPINE: No fracture or dislocation. No worrisome bone lesions. No significant disc disea se. SOFT TISSUES: No findings. OTHER: Prior CT abdomen was reviewed from 07/16/2017 and ultrasound 07/16/2017. The large left retro peritoneal hematoma or mass seen on CT is not apparent by plain films. Findings discussed with Dr. Catracho graf. Surgical clips in the para-aortic region, old ventral hernia repair. IMPRESSION: Bones osteopenic. No left hip fracture or left hemipelvis fracture. TECHNICAL DOCUMENTATION: JOB ID: [id number] [employer]- All Rights Reserved
[2017-07-17] MEDS ORDERED: DIGOXIN INJ 0.5 MG/2 ML AMPULE IV SCH (10:00)
--- NOTE | 2017-07-17 11:00 | PDOC CONSULTATION ---
Consultation Consult Date: 07/17/17 Consult reason:: Hematology/Oncology consultation was requested for Kidney mass on CT. History of Present Illness Admission Date/PCP: 07/16/17 14:16 History of Present Illness: Ms. Burrell is a 77 year old female who was found by her daughter at home on the Bathroom floor, face down. Patient apparently fell in the bathroom. Patient does not remember feeling ill prior to the event. She denies any recent abdominal or back pain. She denies difficulty with bowels or bladder. She is complaining of hunger and asks if I can bring her something good to eat like some [place] fries. She is tired of the pudding. Past Medical History Past Medical History: Most was obtained from medical records, as patient unable to answer most of these questions. Cardiac Medical History: Reports: Hypertension Past Surgical History Past Surgical History: Reports: Other - Eye surgery Social History Lives with: Alone Smoking Status: Never Smoker Frequency of Alcohol Use: None Hx Recreational Drug Use: No Drugs: None Past Social History Note: Daughter lives close by. - Advance Directive Resuscitation Status: Full Code Family History Family History: Reviewed & Not Pertinent Parental Family History Reviewed: No Children Family History Reviewed: No Sibling(s) Family History Reviewed.: No Medication/Allergy Home Medications: Cetirizine HCl [Zyrtec 10 mg Tablet] 20 mg PO DAILY 07/16/17 Fluticasone Propionate [Flonase Nasal [place] 50 Mcg/[place] 16 gm] 1 spray NASL DAILY 07/16/17 Levothyroxine Sodium [Synthroid 0.025 mg Tablet] 0.025 mg PO Q6AM 07/16/17 Lisinopril [Prinivil 2.5 mg Tablet] 2.5 mg PO Q12 07/16/17 Multivitamin [Tab-A-Jonelle (Multiple Vitamin) Tablet] 1 tab PO DAILY 07/16/17 Vitamin E (Dl, Acetate) [Vitamin E 400 Unit Capsule] 400 unit PO DAILY 07/16/17 Allergies/Adverse Reactions: No Known Allergies Allergy (Unverified 07/16/17 11:04) Review of Systems Review of Systems: Difficult to fully obtain due to memory issues. However, she denies recent surgery, recent HEadaches. She reports some back pain currently. No recent dyspnea, chest pain, nausea, bowel or bladder issues. Physical Exam Vital Signs: Temp Pulse Resp BP Pulse Ox 97.9 F 79 18 96/58 L 99 07/17/17 08:00 07/17/17 08:00 07/17/17 08:00 07/17/17 08:00 07/17/17 08:00 Intake & Output 07/16/17 07/17/17 07/18/17 06:59 06:59 06:59 Intake Total 1749 Output Total 1330 150 Balance 419 -150 Weight 60.7 kg General appearance: PRESENT: no acute distress, well-nourished Eye exam: PRESENT: other - Enlarged pupils. Not reactive. Unable to fully focus. Mouth exam: PRESENT: moist, tongue midline Teeth exam: PRESENT: edentulous Neck exam: ABSENT: lymphadenopathy, tenderness Cardiovascular exam: PRESENT: irregular rhythm Pulses: PRESENT: normal dorsalis pedis pul GI/Abdominal exam: PRESENT: distended, mass - Left UQ/flank. Tender to deep palpation in this area., soft Extremities exam: ABSENT: pedal edema Neurological exam: PRESENT: alert, awake, other - Talkative with fairly clear speech. Skin exam: PRESENT: normal color Results Laboratory Results: 07/17/17 05:05 07/17/17 05:05 07/16/17 07/16/17 07/17/17 15:04 15:04 00:59 WBC 13.8 H 10.3 RBC 3.78 3.49 L Hgb 10.9 L 10.2 L Hct 32.4 L 29.5 L MCV 86 85 MCH 28.9 29.2 MCHC 33.7 34.6 RDW 15.1 H 15.0 H Plt Count 224 200 Seg Neutrophils % 85.4 H 83.1 H Lymphocytes % 6.9 L 7.7 L Monocytes % 7.3 8.9 Eosinophils % 0.1 0.1 Basophils % 0.3 0.2 Absolute Neutrophils 11.8 H 8.6 H Absolute Lymphocytes 1.0 0.8 Absolute Monocytes 1.0 0.9 Absolute Eosinophils 0.0 0.0 Absolute Basophils 0.0 0.0 Sodium 138.8 Potassium 4.8 Chloride 105 Carbon Dioxide 19 L Anion Gap 15 BUN 74 H Creatinine 3.58 H Est GFR ( Amer) 15 L Est GFR (Non-Af Amer) 12 L Glucose 88 Calcium 8.7 Total Bilirubin 0.6 AST 51 H ALT 38 Alkaline Phosphatase 104 Total Protein 5.1 L Albumin 2.7 L Triglycerides Cholesterol LDL Cholesterol Direct VLDL Cholesterol HDL Cholesterol TSH Free T4 Blood Type Antibody Screen 07/17/17 07/17/17 07/17/17 05:05 05:05 05:05 WBC 13.2 H RBC 3.68 L Hgb 10.4 L Hct 31.5 L MCV 86 MCH 28.3 MCHC 33.0 RDW 15.2 H Plt Count 256 Seg Neutrophils % 83.8 H Lymphocytes % 8.2 L Monocytes % 7.6 Eosinophils % 0.2 Basophils % 0.2 Absolute Neutrophils 11.1 H Absolute Lymphocytes 1.1 Absolute Monocytes 1.0 Absolute Eosinophils 0.0 Absolute Basophils 0.0 Sodium 142.2 Potassium 4.1 Chloride 110 H Carbon Dioxide 17 L Anion Gap 15 BUN 71 H Creatinine 2.87 H Est GFR ( Amer) 19 L Est GFR (Non-Af Amer) 16 L Glucose 78 Calcium 8.4 Total Bilirubin 0.5 AST 50 H ALT 40 Alkaline Phosphatase 103 Total Protein 5.1 L Albumin 2.6 L Triglycerides 76 Cholesterol 111.44 LDL Cholesterol Direct 62 VLDL Cholesterol 15.0 HDL Cholesterol 19 L TSH 0.02 L Free T4 2.11 Blood Type Antibody Screen 07/17/17 05:53 WBC RBC Hgb Hct MCV MCH MCHC RDW Plt Count Seg Neutrophils % Lymphocytes % Monocytes % Eosinophils % Basophils % Absolute Neutrophils Absolute Lymphocytes Absolute Monocytes Absolute Eosinophils Absolute Basophils Sodium Potassium Chloride Carbon Dioxide Anion Gap BUN Creatinine Est GFR ( Amer) Est GFR (Non-Af Amer) Glucose Calcium Total Bilirubin AST ALT Alkaline Phosphatase Total Protein Albumin Triglycerides Cholesterol LDL Cholesterol Direct VLDL Cholesterol HDL Cholesterol TSH Free T4 Blood Type O POSITIVE Antibody Screen NEGATIVE 07/17/17 07/17/17 05:05 05:05 Creatine Kinase 347 H CK-MB (CK-2) 4.98 H Troponin I 0.083 Impressions: Abdomen/Pelvis CT 07/16/17 00:00 IMPRESSION: 1. Cannot exclude limited left lower lobe pneumonia. There is a moderate left pleural effusion. 2. There is a large mass in the mid abdomen extending from the midline to the left. There are 2 smaller masses as described. Etiology uncertain. Hematoma should be in the differential. Josie masses cannot be excluded. Consider surgical consultation. Carotid Doppler Study 07/16/17 00:00 IMPRESSION: NO HEMODYNAMICALLY SIGNIFICANT STENOSIS. Renal Ultrasound 07/16/17 00:00 IMPRESSION: There is a large mass extending from midline to the left. This could represent a renal neoplasm. Recommend CT without with contrast. Cervical Spine CT 07/16/17 09:34 IMPRESSION: NO ACUTE OR SIGNIFICANT FINDINGS IN THE CERVICAL SPINE. Acute Abdomen Series 07/16/17 09:35 IMPRESSION: Nonspecific bowel gas pattern. No acute infiltrates. Head CT 07/16/17 09:35 IMPRESSION: Very limited study. No acute changes EVIDENCE OF ACUTE STROKE: NO. Hip/Pelvis X-Ray 07/16/17 12:15 IMPRESSION: Normal right hip. Lower lumbar degenerative changes are present. Hip X-Ray 07/17/17 04:30 IMPRESSION: Bones osteopenic. No left hip fracture or left hemipelvis fracture. Assessment & Plan - Diagnosis (1) Left kidney mass Plan: Difficult to say if this is a cancer or a large hematoma. I agree with further studies to establish this. Platelet count is normal, but INR is slightly elevated. This may be nutritional. I would check PTT as well to search for underlying bleeding problems. (2) Anemia Is this a current diagnosis for this admission?: Yes Plan: Currently unknown if her anemia is secondary to bleed or other cause. I do not have prior CBCs for comparison. It appears stable at the moment. May transfuse if needed. - Plan Summary Plan Summary: Thank you for this consultation. I will be happy to see her again in the future. I agree with plans to transfer for further work-up of her kidney mass. Please call me with any questions or concerns.
--- NOTE | 2017-07-17 11:32 | PDOC TRANSFER SUMMARY ---
General Admission Date/PCP: 07/16/17 14:16 Admission Date: 07/16/17 Transfer Date: 07/17/17 Accepting Facility: [facility] Resuscitation Status: Full Code - Transfer Diagnosis (1) Left kidney mass Is this a current diagnosis for this admission?: Yes Diagnosis Summary: Pt's CT of abd and renal ultrasound demonstrate large left renal mass. Current concern is that this could be a hematoma vs mass. (2) Intra abdominal hemorrhage Is this a current diagnosis for this admission?: Yes Diagnosis Summary: Concern for Retroperitoneal Hematoma: Pt being transferred to [facility] for further evaluation. (3) Renal failure Is this a current diagnosis for this admission?: Yes Diagnosis Summary: Pt has been placed on IVF and renal function has improved. Cr 4.11 now 2.87. (4) Orthostatic hypotension Is this a current diagnosis for this admission?: Yes Diagnosis Summary: Pt has receive 4 NS boluses. Pt's blood pressure worsened by medication which has been changed. Pt currently being weaned off pressor. (5) Syncope Is this a current diagnosis for this admission?: Yes (6) Rhabdomyolysis Is this a current diagnosis for this admission?: Yes Diagnosis Summary: Resolved. (7) Moderate protein-calorie malnutrition Is this a current diagnosis for this admission?: Yes Diagnosis Summary: Recommend continuing Nephro drinks. (8) Debility Is this a current diagnosis for this admission?: Yes Diagnosis Summary: PT/OT evaluation. (9) Environmental safety problem Is this a current diagnosis for this admission?: Yes Diagnosis Summary: Pt's home environment will need to be evaluated due to pt living alone. - Transfer Medications Home Medications: Levothyroxine Sodium [Synthroid 0.025 mg Tablet] 0.025 mg PO Q6AM 07/16/17 Transfer Medications: Current Medications Acetaminophen (Tylenol 325 Mg Tablet) 650 mg PO Q4HP PRN PRN Reason: PAIN OR FEVER Stop: 08/15/17 13:00 Last Admin: 07/16/17 23:38 Dose: 650 mg Digoxin (Lanoxin Inj 0.5 Mg/2 Ml Ampule) 0.25 mg IV DAILY [facility] Stop: 08/16/17 09:59 Last Admin: 07/17/17 10:13 Dose: 0.25 mg Hydrocortisone Sodium Succinate (Solu-Cortef Inj/Pf 100 Mg/ 2 Ml Sdv) 100 mg IV Q8 [facility] Stop: 08/16/17 13:59 Sodium Chloride (Nacl 0.9% 1000 Ml Iv Soln) 1,000 mls @ 75 mls/hr IV CONTINUOUS PRN PRN Reason: THIS MED IS NOT "PRN" Stop: 08/15/17 13:00 Last Admin: 07/17/17 04:16 Dose: 1,000 ml Hard Fat/Phenylephrine 40 mg/ (Dextrose) 250 mls @ 0 mls/hr IV CONTINUOUS PRN; Protocol; Titrate PRN Reason: THIS MED IS NOT "PRN" Stop: 08/16/17 04:29 Influenza Virus Vaccine Quadrival (Fluzone Adlt Quad 0826-4525 Vac 0.5 Ml Syr) 0.5 ml IM .DISCHARGE PRN PRN Reason: THIS MED IS NOT "PRN" Stop: 08/15/17 20:44 Lansoprazole (Prevacid 30 Mg Odt Tablet) 30 mg PO Q6AM [facility] Stop: 08/16/17 05:59 Last Admin: 07/17/17 05:25 Dose: 30 mg Ondansetron HCl (Zofran Inj/Pf 4 Mg/2 Ml Sdv) 4 mg IV Q8HP PRN PRN Reason: FOR NAUSEA/VOMITING Stop: 08/15/17 13:00 - Allergies Allergies/Adverse Reactions: No Known Allergies Allergy (Unverified 07/16/17 11:04) - Diet/Activity Discharge Diet: Clear Liquids Hospital Course Hospital Course: 77-year-old female presents to our facility with complaint of altered mental status. During my encounter patient appeared to be at her baseline however patient was noted to have a creatinine of 4.11. Patient was given IV fluids down the emergency room due to patient being hypotensive. Patient's IV fluids were continued during hospital stay. Patient had a renal ultrasound demonstrated a left renal mass that was extending to midline. Patient then had a CT of the abdomen was ordered that demonstrated the same findings. The CT documented that there was heterogenicity noted and therefore was concerned that patient could have a hematoma present. Request for transfer was made to due to not having urology or surgery that would feel comfortable handling this situation. Patient was also noted to have hydronephrosis on CT. Spoke to [facility] who graciously accepted patient. Patient overnight he developed new onset afibrillation and the covering physician place patient on diltiazem which worsened patient's blood pressure. Diltiazem was discontinued and patient was given dig. Patient was on Jez-Synephrine which is currently being titrated down. Call was placed to patient's daughter but no answer. Physical Exam Vital Signs: Temp Pulse Resp BP Pulse Ox 97.9 F 76 19 91/58 L 100 07/17/17 08:00 07/17/17 10:00 07/17/17 10:41 07/17/17 10:41 07/17/17 10:41 Intake & Output 07/16/17 07/17/17 07/18/17 06:59 06:59 06:59 Intake Total 1749 Output Total 1330 275 Balance 419 -275 Weight 60.7 kg General appearance: PRESENT: no acute distress, thin Head exam: PRESENT: atraumatic, normocephalic Eye exam: PRESENT: conjunctiva pink, EOMI. ABSENT: scleral icterus Ear exam: PRESENT: normal external ear exam Mouth exam: PRESENT: moist, tongue midline Neck exam: ABSENT: carotid bruit, JVD, lymphadenopathy, thyromegaly Respiratory exam: PRESENT: clear to auscultation cem. ABSENT: rales, rhonchi, wheezes Cardiovascular exam: PRESENT: irregular rhythm, other - no edema Pulses: PRESENT: normal dorsalis pedis pul GI/Abdominal exam: PRESENT: normal bowel sounds, soft. ABSENT: distended, guarding, mass, organolmegaly, rebound, tenderness Rectal exam: PRESENT: deferred Extremities exam: PRESENT: full ROM. ABSENT: calf tenderness, clubbing, pedal edema Neurological exam: PRESENT: alert, oriented to person, oriented to place, oriented to time, other - Impaired vision Psychiatric exam: PRESENT: appropriate affect, normal mood. ABSENT: homicidal ideation, suicidal ideation Skin exam: PRESENT: dry, intact, warm. ABSENT: cyanosis, rash Results Laboratory Results: 07/17/17 05:05 07/17/17 05:05 07/16/17 07/16/17 07/17/17 15:04 15:04 00:59 WBC 13.8 H 10.3 RBC 3.78 3.49 L Hgb 10.9 L 10.2 L Hct 32.4 L 29.5 L MCV 86 85 MCH 28.9 29.2 MCHC 33.7 34.6 RDW 15.1 H 15.0 H Plt Count 224 200 Seg Neutrophils % 85.4 H 83.1 H Lymphocytes % 6.9 L 7.7 L Monocytes % 7.3 8.9 Eosinophils % 0.1 0.1 Basophils % 0.3 0.2 Absolute Neutrophils 11.8 H 8.6 H Absolute Lymphocytes 1.0 0.8 Absolute Monocytes 1.0 0.9 Absolute Eosinophils 0.0 0.0 Absolute Basophils 0.0 0.0 Sodium 138.8 Potassium 4.8 Chloride 105 Carbon Dioxide 19 L Anion Gap 15 BUN 74 H Creatinine 3.58 H Est GFR ( Amer) 15 L Est GFR (Non-Af Amer) 12 L Glucose 88 Calcium 8.7 Total Bilirubin 0.6 AST 51 H ALT 38 Alkaline Phosphatase 104 Total Protein 5.1 L Albumin 2.7 L Triglycerides Cholesterol LDL Cholesterol Direct VLDL Cholesterol HDL Cholesterol TSH Free T4 Blood Type Antibody Screen 07/17/17 07/17/17 07/17/17 05:05 05:05 05:05 WBC 13.2 H RBC 3.68 L Hgb 10.4 L Hct 31.5 L MCV 86 MCH 28.3 MCHC 33.0 RDW 15.2 H Plt Count 256 Seg Neutrophils % 83.8 H Lymphocytes % 8.2 L Monocytes % 7.6 Eosinophils % 0.2 Basophils % 0.2 Absolute Neutrophils 11.1 H Absolute Lymphocytes 1.1 Absolute Monocytes 1.0 Absolute Eosinophils 0.0 Absolute Basophils 0.0 Sodium 142.2 Potassium 4.1 Chloride 110 H Carbon Dioxide 17 L Anion Gap 15 BUN 71 H Creatinine 2.87 H Est GFR ( Amer) 19 L Est GFR (Non-Af Amer) 16 L Glucose 78 Calcium 8.4 Total Bilirubin 0.5 AST 50 H ALT 40 Alkaline Phosphatase 103 Total Protein 5.1 L Albumin 2.6 L Triglycerides 76 Cholesterol 111.44 LDL Cholesterol Direct 62 VLDL Cholesterol 15.0 HDL Cholesterol 19 L TSH 0.02 L Free T4 2.11 Blood Type Antibody Screen 07/17/17 05:53 WBC RBC Hgb Hct MCV MCH MCHC RDW Plt Count Seg Neutrophils % Lymphocytes % Monocytes % Eosinophils % Basophils % Absolute Neutrophils Absolute Lymphocytes Absolute Monocytes Absolute Eosinophils Absolute Basophils Sodium Potassium Chloride Carbon Dioxide Anion Gap BUN Creatinine Est GFR ( Amer) Est GFR (Non-Af Amer) Glucose Calcium Total Bilirubin AST ALT Alkaline Phosphatase Total Protein Albumin Triglycerides Cholesterol LDL Cholesterol Direct VLDL Cholesterol HDL Cholesterol TSH Free T4 Blood Type O POSITIVE Antibody Screen NEGATIVE 07/17/17 07/17/17 05:05 05:05 Creatine Kinase 347 H CK-MB (CK-2) 4.98 H Troponin I 0.083 Impressions: Abdomen/Pelvis CT 07/16/17 00:00 IMPRESSION: 1. Cannot exclude limited left lower lobe pneumonia. There is a moderate left pleural effusion. 2. There is a large mass in the mid abdomen extending from the midline to the left. There are 2 smaller masses as described. Etiology uncertain. Hematoma should be in the differential. Josie masses cannot be excluded. Consider surgical consultation. Carotid Doppler Study 07/16/17 00:00 IMPRESSION: NO HEMODYNAMICALLY SIGNIFICANT STENOSIS. Renal Ultrasound 07/16/17 00:00 IMPRESSION: There is a large mass extending from midline to the left. This could represent a renal neoplasm. Recommend CT without with contrast. Cervical Spine CT 07/16/17 09:34 IMPRESSION: NO ACUTE OR SIGNIFICANT FINDINGS IN THE CERVICAL SPINE. Acute Abdomen Series 07/16/17 09:35 IMPRESSION: Nonspecific bowel gas pattern. No acute infiltrates. Head CT 07/16/17 09:35 IMPRESSION: Very limited study. No acute changes EVIDENCE OF ACUTE STROKE: NO. Hip/Pelvis X-Ray 07/16/17 12:15 IMPRESSION: Normal right hip. Lower lumbar degenerative changes are present. Hip X-Ray 07/17/17 04:30 IMPRESSION: Bones osteopenic. No left hip fracture or left hemipelvis fracture. Plan Time Spent: Greater than 30 Minutes - 41 mins
[2017-07-17 11:48] LABS: CREATINE KINASE MB 4.18 ng/mL (<4.55); TROPONIN I 0.081 ng/mL
[2017-07-17 12:52] VITALS: BP 97/60
--- NOTE | 2017-07-17 13:36 | XCELERA REPORT ---
[address] [address] Transthoracic Echocardiogram Report Name: DOMENIC MARTELL Age: 77 yrs Gender: Female : 1940 Patient Status: Inpatient Patient Location: [place] [address]^A Study Date: 07/16/2017 02:01 PM Procedure: A two-dimensional transthoracic echocardiogram with color flow and Doppler was performed. Study Quality: Technically suboptimal. Reason For Study: Syncope History: Syncope. Ordering Physician: JULIETTE LOBO Performed By: Abbie Kyle Interpretation Summary A two-dimensional transthoracic echocardiogram with color flow and Doppler was performed. Study Quality: Technically suboptimal. The left ventricle is normal in size. There is normal left ventricular wall thickness. LV EF is > tthan 60% Left ventricular systolic function is normal. Doppler measurements suggest impaired left ventricular relaxation, which is associated with grade I/IV or mild diastolic dysfunction The left ventricular wall motion is normal. There is no thrombus. The right ventricle is not well visualized secondary to technical limitations The right atrium is normal. The left atrial size is normal. There is no evidence of mitral valve prolapse. There is no vegetation seen on the mitral valve. There is no mitral valve stenosis. There is a trace amount of mitral regurgitation There is mild aortic stenosis There is a peak gradient of 16 mm of Hg. There is no LVOT obstruction. No aortic regurgitation is present. There is no tricuspid stenosis. There is a trace to mild amount of tricuspid regurgitation RVSP is 32 mm of Hg , and is just above the upper normal limit of 30 mm of Hg. There is no pulmonic valvular stenosis. There is a trace amount of pulmonic regurgitation The aortic root is normal size. There is no pericardial effusion. MMode/2D Measurements & Calculations RVDd: 3.0 cm LVIDd: 3.7 cm FS: 39.1 % Ao root diam: 2.4 cm IVSd: 0.96 cm LVIDs: 2.3 cm EDV(Teich): 58.9 ml Ao root area: 4.5 cm2 LVPWd: 0.98 cm ESV(Teich): 17.4 ml LA dimension: 3.9 cm EF(Teich): 70.4 % Doppler Measurements & Calculations MV E max franck: MV P1/2t max franck: Ao V2 max: LV V1 max P.5 cm/sec 116.0 cm/sec 200.9 cm/sec 6.9 mmHg MV A max franck: MV P1/2t: 87.4 msec Ao max PG: LV V1 max: 125.4 cm/sec MVA(P1/2t): 2.5 cm2 16.1 mmHg 131.6 cm/sec MV E/A: 0.91 MV dec slope: 388.8 cm/sec2 PA V2 max: PI end-d franck: TR max franck: 105.6 cm/sec 100.4 cm/sec 260.6 cm/sec PA max PG: TR max P.5 mmHg 27.2 mmHg Left Ventricle The left ventricle is normal in size. There is normal left ventricular wall thickness. LV EF is > tthan 60%. Left ventricular systolic function is normal. Doppler measurements suggest impaired left ventricular relaxation, which is associated with grade I/IV or mild diastolic dysfunction. The left ventricular wall motion is normal. There is no thrombus. Right Ventricle The right ventricle is not well visualized secondary to technical limitations. Atria The right atrium is normal. The left atrial size is normal. Mitral Valve There is no evidence of mitral valve prolapse. There is no vegetation seen on the mitral valve. There is no mitral valve stenosis. There is a trace amount of mitral regurgitation. Aortic Valve There is no aortic valvular vegetation. There is mild aortic stenosis. There is a peak gradient of 16 mm of Hg. There is no LVOT obstruction. No aortic regurgitation is present. Tricuspid Valve There is no tricuspid stenosis. There is a trace to mild amount of tricuspid regurgitation. RVSP is 32 mm of Hg , and is just above the upper normal limit of 30 mm of Hg. Pulmonic Valve There is no pulmonic valvular stenosis. There is a trace amount of pulmonic regurgitation. Great Vessels The aortic root is normal size. Effusions There is no pericardial effusion. : JULIETTE LOBO > Concetta Garzon
[2017-07-17] MEDS ORDERED: HYDROCORTISONE SOD SUCCINATE INJ/PF 100 MG/2 ML SDV IV SCH (14:00)
== END 2017-07-17 12:48 | disposition short-term general hospital (02) | DRG 699 ==
LOC: ER 09:22 → EH 14:16 → 4S 15:15 → ICU 07-17 02:30
PROVIDERS: ADMIT Internal Medicine; ATTEND Internal Medicine
DX: N28.89 Other specified disorders of kidney and ureter (principal); M62.82 Rhabdomyolysis; E44.0 Moderate protein-calorie malnutrition; R58 Hemorrhage, not elsewhere classified; R41.82 Altered mental status, unspecified; N17.9 Acute kidney failure, unspecified; I95.1 Orthostatic hypotension; E03.9 Hypothyroidism, unspecified; E86.0 Dehydration; I10 Essential (primary) hypertension; L89.321 Pressure ulcer of left buttock, stage 1; L89.312 Pressure ulcer of right buttock, stage 2; R53.81 Other malaise; S01.01XA Laceration without foreign body of scalp, initial encounter; W18.39XA Other fall on same level, initial encounter; Y93.89 Activity, other specified; Y92.008 Other place in unspecified non-institutional (private) residence as the place of occurrence of the external cause; Z60.2 Problems related to living alone; Z68.23 Body mass index [BMI] 23.0-23.9, adult
CPT/HCPCS: 36415; 70450; 72125; 74022; 74176; 76770; 80053; 80061; 81001; 82533; 82550; 82553; 82962; 83605; 83735; 84439; 84443; 84481; 84484; 85025; 85610; 86850; 86900; 86901; 87040; 87086; 93005; 93010; 93306; 93880; 96360; 96361; 99285; G8996-GN; G8997-GN; G8998-GN; J1160; J1720; J2370; J3490; J7030

== ENCOUNTER 2017-09-13 23:36 | Emergency (ER) | payer MEDICARE, MEDICAID ==
--- NOTE | 2017-09-14 00:17 | ER Document Report ---
ED Head/Face/Scalp Injury - General Chief Complaint: Head Injury Stated Complaint: HEAD INJURY Time Seen by Provider: 09/14/17 00:30 Mode of Arrival: Stretcher Information source: Patient, Emergency Med Personnel TRAVEL OUTSIDE OF THE [place] IN LAST 30 DAYS: No - HPI Notes: 77-year-old lady with past medical history of atrial fibrillation who was on Lovenox injections, active kidney cancer who presented today from [facility] for evaluation of a fall. According to family patient usually gets up to go the bathroom and falls. Patient sustained approximately 4 falls within the last week. Patient has notable laceration localized to the right frontal scalp measuring approximately 3 cm in size, with active arterial bleeding. Unsure if patient had loss of consciousness. Family is concerned that patient might be dehydrated to have infection. Patient is in process to obtain acute rehab and later be set up for hospice care given her malignancy that is not operable at present time. Patient supposed to have oncology appointment as well as urology appointment next week. - Related Data Allergies/Adverse Reactions: No Known Allergies Allergy (Unverified 07/16/17 11:04) Past Medical History - Social History Smoking Status: Never Smoker Family History: Reviewed & Not Pertinent Patient has suicidal ideation: No Patient has homicidal ideation: No - Past Medical History Cardiac Medical History: Reports: Hx Atrial Fibrillation, Hx Hypertension Renal/ Medical History: Denies: Hx Peritoneal Dialysis Past Surgical History: Reports: Other - Eye surgery Review of Systems - Review of Systems Notes: REVIEW OF SYSTEMS: CONSTITUTIONAL: -fevers, -chills, +frequent falls EENT: -eye pain, -difficulty swallowing, -nasal congestion CARDIOVASCULAR: -chest pain, -syncope. RESPIRATORY: + Cough, -SOB GASTROINTESTINAL: -abdominal pain, -nausea, -vomiting, -diarrhea GENITOURINARY: -dysuria, -hematuria MUSCULOSKELETAL: -back pain, -neck pain SKIN: -rash or skin lesions. HEMATOLOGIC: -easy bruising or bleeding. LYMPHATIC: -swollen, enlarged glands. NEUROLOGICAL: -altered mental status or loss of consciousness, -headache, - neurologic symptoms PSYCHIATRIC: -anxiety, -depression. ALL OTHER SYSTEMS REVIEWED AND NEGATIVE. Physical Exam - Vital signs Vitals: Temp Pulse Resp BP Pulse Ox 98.3 F 87 16 134/85 H 97 09/14/17 00:01 09/14/17 00:01 09/14/17 00:01 09/14/17 00:01 09/14/17 00:01 - Notes Notes: Reviewed vital signs and nursing note as charted by RN. CONSTITUTIONAL: Alert HEAD: Normocephalic; patient has right frontal hematoma with 3 cm laceration with active arterial bleeding, laceration is approximately 5 mm deep, no scalp deformity EYES: Patient is legally blind ENT: normal nose NECK: Supple without meningismus; no cervical spine tenderness CARD: Regular rate and rhythm; no murmurs, no clicks, no rubs, no gallops; symmetric distal pulses RESP: Normal chest excursion without splinting or tachypnea; breath sounds clear and equal bilaterally ABD/GI: Normal bowel sounds; non-distended; soft, BACK: The back appears normal and is non-tender to palpation EXT: Normal ROM in all joints; non-tender to palpation; no cyanosis, no effusions, no edema SKIN: Normal color for age and race NEURO: .Cranial nerves 3-12 intact. Motor strength 5/5 bilaterally. Sensation intact to touch bilaterally. No pronator drift. Finger to nose intact bilaterally PSYCH: Patient has dementia Course - Re-evaluation Re-evalutation: 09/14/17 01:49 77-year-old who was on blood thinners presented today with close head injury after a fall Differential diagnoses includes subdural hematoma, intracranial hemorrhage, dehydration, acute cystitis, pneumonia, anemia, worsening malignancy We will stop bleeding with tying off vessels, please see procedure note We will obtain basic lab work including CBC, BMP, urinalysis, chest x-ray, EKG, troponin Reassess patient 09/14/17 04:07 Patient is doing well CT scan of her brain without any intracranial injury or hematoma No more bleeding from her laceration Lab work is stable, no worsening kidney function Patient has slightly worsening anemia, no need for transfusion at present time Chest x-ray with no acute pneumonia, normal EKG as well as troponin Urinalysis with no acute cystitis At this point will discharge back to rehab facility Discussed results of imaging, lab work and urinalysis with family Encourage follow-up with oncology as well as urology for further management of her kidney mass - Vital Signs Vital signs: Temp Pulse Resp BP Pulse Ox 98.3 F 87 20 97/78 L 96 09/14/17 00:01 09/14/17 00:01 09/14/17 02:02 09/14/17 02:02 09/14/17 02:02 - Laboratory Result Diagrams: 09/14/17 00:57 09/14/17 00:57 Laboratory results interpreted by me: 09/14/17 09/14/17 09/14/17 00:57 00:57 03:30 RBC 3.20 L Hgb 8.7 L Hct 26.5 L RDW 16.7 H BUN 23 H Creatinine 1.32 H Est GFR ( Amer) 47 L Est GFR (Non-Af Amer) 39 L Total Protein 5.6 L Albumin 3.2 L Urine Protein 100 H Urine Urobilinogen 2.0 H Urine Ascorbic Acid 20 H - Diagnostic Test Radiology reviewed: Image reviewed - CLINICAL HISTORY: 77 years Female, fell, hit head, on blood thinners COMPARISON: 07.16.17 TECHNIQUE: No contrast. This exam was performed according to our departmental dose-optimization program , which includes automated exposure control, adjustment of the mA and/or kV according to patient size and/or use of iterative reconstruction technique. FINDINGS: Moderate cerebral volume loss, moderate white matter microangiopathy , atherosclerosis, mild motion artifact, small right parietal scalp swelling. No hemorrhage or infarct. No mass, mass effect, or midline shift. Extra- axial structures appear otherwise grossly intact. Impression: Small scalp swelling. Dictated by: RADHA FREY MD [id number] CC: ROLY SINGLETON DO Radiology results interpreted by me: 09/14/17 03:43 Normal x-ray, no evidence of aspiration pneumonia or any other acute cardiopulmonary process - EKG Interpretation by Me Additional EKG results interpreted by me: 09/14/17 02:13 EKG interpretation 2:10 AM Rate 90, normal sinus rhythm Normal axis, normal NJ intervals as well as QTC No ST elevations or depressions, T-wave inversions in lead II Procedures - Laceration/Wound Repair Head Wound length (cm): 3 Wound's Depth, Shape: Into muscle, Linear Anesthetic type: 1% Lidocaine Wound explored: Clean Wound Debrided: Minimal Wound Repaired With: Sutures Suture Size/Type: Vicryl Number of Sutures: 3 Layer Closure?: Yes Post-procedure NV exam normal: Yes Complications: No Notes: 09/14/17 01:51 Arterial bleeding was controlled by tying off vessels with Vicryl suture in figure 8 stitches Discharge - Discharge Clinical Impression: Closed head injury, Scalp hematoma, Scalp laceration, Anemia, History of renal cell cancer Condition: Stable Disposition: REHAB FACILITY Additional Instructions: You have been diagnosed today with scalp laceration as well as hematoma Your CT scan did not reveal any intracranial injury You have stitches on your scalp, they do not need to be removed Your urinalysis and blood work did not show any dehydration or infection Please follow-up with your doctors for further management of your kidney mass and further workup Please bring patient back if she develops worsening fevers, chills, nausea vomiting, severe headaches
[2017-09-14] MEDS ORDERED: LIDOCAINE 1% INJ-PF (10 MG/ML) 30 ML SDV INJ ONE (00:33)
--- NOTE | 2017-09-14 00:55 | RADIOLOGY REPORT (SQ) ---
EXAM DESCRIPTION: CT HEAD WITHOUT CLINICAL HISTORY: 77 years Female, fell, hit head, on blood thinners COMPARISON: 07.16.17 TECHNIQUE: No contrast. This exam was performed according to our departmental dose-optimization program, which includes automated exposure control, adjustment of the mA and/or kV according to patient size and/or use of iterative reconstruction technique. FINDINGS: Moderate cerebral volume loss, moderate white matter microangiopathy, atherosclerosis, mild motion artifact, small right parietal scalp swelling. No hemorrhage or infarct. No mass, mass effect, or midline shift. Extra-axial structures appear otherwise grossly intact. Impression: Small scalp swelling.
[2017-09-14 01:18] LABS: ABSOLUTE MONOCYTES (AUTO) 0.6 10^3/uL (0.1-1.4); ABSOLUTE NEUT (AUTO) 4.5 10^3/uL (1.7-8.2); BASOPHILS % (AUTO) 0.4 % (0-2); EOSINOPHILS % (AUTO) 0.4 % (0-6); HEMATOCRIT 26.5 % (36.0-47.0); HEMOGLOBIN 8.7 g/dL (12.0-15.5); LYMPHOCYTES % (AUTO) 15.6 % (13-45); MEAN CORPUSCULAR HEMOGLOBIN 27.2 pg (27.0-33.4); MEAN CORPUSCULAR HGB CONC 32.9 g/dL (32.0-36.0); MEAN CORPUSCULAR VOLUME 83 fl (80-97); MONOCYTES % (AUTO) 10.1 % (3-13); PLATELET COUNT 179 10^3/uL (150-450); RED CELL DISTRIBUTION WIDTH 16.7 % (11.5-14.0); SEGMENTED NEUTROPHILS % (AUTO) 73.5 % (42-78); TOTAL CELLS COUNTED % (AUTO) 100 %; WHITE BLOOD COUNT 6.2 10^3/uL (4.0-10.5)
[2017-09-14 01:20] LABS: ALBUMIN 3.2 g/dL (3.5-5.0); ANION GAP 10 (5-19); CARBON DIOXIDE 26 mmol/L (22-30); CHLORIDE 103 mmol/L (98-107); GLUCOSE 103 mg/dL (75-110); POTASSIUM 4.2 mmol/L (3.6-5.0); SODIUM 139.1 mmol/L (137-145); TOTAL PROTEIN 5.6 g/dL (6.3-8.2)
[2017-09-14 01:22] LABS: ALANINE AMINOTRANSFERASE 27 U/L (9-52); ALKALINE PHOSPHATASE 86 U/L (38-126); ASPARTATE AMINO TRANSFERASE 32 U/L (14-36); BILIRUBIN,DIRECT 0.2 mg/dL (0.0-0.4); BILIRUBIN,TOTAL 0.3 mg/dL (0.2-1.3); BLOOD UREA NITROGEN 23 mg/dL (7-20)
--- NOTE | 2017-09-14 02:32 | RADIOLOGY REPORT (SQ) ---
EXAM DESCRIPTION: CHEST PA/LAT CLINICAL HISTORY: 77 years, Female, pneumonia COMPARISON: 07.16.17 NUMBER OF VIEWS: 2 FINDINGS: Normal lung volume, clear parenchyma, normal cardiac silhouette, positioning/deformity artifact of the right proximal humeral shaft, moderate osteoarthritis, moderate exaggerated kyphosis, moderate disc desiccation. IMPRESSION: No acute cardiopulmonary findings.
[2017-09-14 03:56] LABS: AMORPHOUS SEDIMENT,URINE TRACE /HPF; APPEARANCE,URINE CLOUDY; BILIRUBIN,URINE NEGATIVE (NEGATIVE); COLOR,URINE AMBER; GLUCOSE, URINE NEGATIVE (NEGATIVE); KETONES,URINE NEGATIVE (NEGATIVE); LEUKOCYTE ESTERASE,URINE NEGATIVE (NEGATIVE); NITRITE,URINE NEGATIVE (NEGATIVE); PROTEIN,URINE 100 mg/dL (NEGATIVE)
[2017-09-14 05:19] VITALS: BP 127/83
== END 2017-09-14 05:24 ==
LOC: ER 23:36
PROC: 0HQ0XZZ Repair Scalp Skin, External Approach (ICD-10-PCS; principal; 2017-09-13)
DX: S09.90XA Unspecified injury of head, initial encounter (principal); S01.01XA Laceration without foreign body of scalp, initial encounter; D64.9 Anemia, unspecified; I48.91 Unspecified atrial fibrillation; I10 Essential (primary) hypertension; C64.9 Malignant neoplasm of unspecified kidney, except renal pelvis; W01.0XXA Fall on same level from slipping, tripping and stumbling without subsequent striking against object, initial encounter; Z91.81 History of falling; Y92.199 Unspecified place in other specified residential institution as the place of occurrence of the external cause
CPT/HCPCS: 99284; 36415; 85025; 80053; 81001; 84484; 71046; 70450; 12032; J3490